=== PATIENT | male | born 1975 | race Two or more races ===

== ENCOUNTER 2023-01-02 01:09 | Emergency (ER) | payer BC, OTHER ==
[~2023-01-02] VITALS: Ht 182.9 cm; Wt 139.0 kg
[2023-01-02] MEDS ORDERED: ACYC1CAP23 PO (01:48)
[2023-01-02] MEDS ORDERED: PRED20TA2 PO (01:48)
[2023-01-02 02:05] VITALS: BP 102/72
== END 2023-01-02 02:05 | disposition home or self-care (01) ==
LOC: ER 01:09
DX: G51.0 Bell's palsy (principal); I10 Essential (primary) hypertension